=== PATIENT | male | born 1990 | race Caucasian/White ===

== ENCOUNTER 2019-05-27 15:27 | Emergency (ER) | payer OTHER ==
[2019-05-27] MEDS ORDERED: Bacitracin Oint 1 GM U/D Packet TOP ONE (16:05)
[2019-05-27] MEDS ORDERED: Diphtheria,Pertussis(Acell),Tetanus Vaccine 0.5 ML SDV IM ONE (16:05)
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
== END 2019-05-27 17:04 | disposition home or self-care (01) ==
LOC: JP.ED 15:27
DX: S61.411A Laceration without foreign body of right hand, initial encounter (principal); Z23 Encounter for immunization; X58.XXXA Exposure to other specified factors, initial encounter
CPT/HCPCS: 12002; 90471; 90715; 99282; J2001